=== PATIENT | female | born 1940 ===

== ENCOUNTER → 2016-04-14 | Outpatient (CLI) | payer OTHER, MEDICARE ==
[2016-04-14 16:43] LABS: LDL CHOLESTEROL,CALCULATED 153.2 mg/dL
[2016-04-14 16:58] LABS: CALCIUM 9.9 mg/dL (8.7-10.7); CREATININE 0.8 mg/dL (0.50-1.20); POTASSIUM 4.7 meq/L (3.8-5.2); TOTAL PROTEIN 6.7 g/dL (6.1-8.0)
== END ==
LOC: LAB 09:32
PROVIDERS: ATTEND Physician Assistant Medical
DX: E11.9 Type 2 diabetes mellitus without complications (principal); E78.2 Mixed hyperlipidemia; R53.83 Other fatigue
CPT/HCPCS: 80053; 80061; 82306; 83036; 84443

== ENCOUNTER → 2016-04-16 | Outpatient (CLI) | payer OTHER, MEDICARE | LOC: MMPC 11:11 | PROVIDERS: ATTEND Surgery | DX: R22.32 Localized swelling, mass and lump, left upper limb (principal) | CPT/HCPCS: 99243 ==

== ENCOUNTER → 2016-04-17 | Outpatient (CLI) | payer OTHER, MEDICARE ==
--- NOTE | 2016-04-19 19:30 | DI ---
MRI LEFT UPPER ARM SCAN WITHOUT AND WITH IV CONTRAST, 04/17/2016 12:53 PM: Clinical History: Mass of the left upper extremity. Previous Exam: None at this facility. Technique: Axial, sagittal, and coronal T1 and T2 weighted and T1-weighted fat saturated scans are colbert pplemented with axial, sagittal, and coronal postcontrast T1-weighted fat saturated scans. Due to elizabeth hnical difficulties, the precontrast T1-weighted fat saturated scans show poor fat saturation, but th e postcontrast scans are of excellent quality. There is an inhomogeneous fatty tumor located in the subcutaneous fat but superficial to Jose Eduardo's fas anabel along the anterolateral margin of the left deltoid muscle along the inferior margin of that muscl e. This lesion measures approximately 40 x 35 x 50 mm in PR-pgniflpgkn-nxidkpdytqrm measurements. In the superior half of the lesion, there is almost only fat tissue signal intensity present. In the inf erior half of, there are hypointense bands present in this portion of the tumor shows marked enhancem ent postcontrast. In addition, there are numerous venous channels in proximity of the lesion just fidelia p to the skin surface, and these probably represent draining veins emanating from the tumor. This les ion is highly suspicious for a liposarcoma. There is no abnormal bone signal pattern present with the exception of some cystic lesions in the head of the humerus. There is a large left shoulder joint ef fusion with a full-thickness partial tear of the supraspinatus tendon at the myotendinous junction. T here is an interstitial tear in the conjoined tendon that would not be visible at arthroscopy. The in fraspinatus, teres minor, and subscapularis tendons are normal. The glenoid labrum is intact. Readin. There is an inhomogeneous fatty lesion measuring 40 x 35 x 50 mm in the subcutaneous fat along th e anterolateral margin toward the inferior aspect of the deltoid muscle. This lesion is located deep to the skin surface and superficial to Jose Eduardo's fascia and shows marked enhancement along the inferio r aspect. The inferior portion of this lesion contains hypointense structures that show enhancement. There are cutaneous draining veins superficial to this lesion. 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 2. There is a full-thickness tear in the supraspinatus tendon at the myotendinous junction as well a s an interstitial tear in the conjoined tendon. A large joint effusion is present. 3. The infraspinatus, teres minor, and subscapularis tendons and the tendon of the long head of the biceps muscle are normal. The glenoid labrum is intact.
== END ==
LOC: MRI 13:42
PROVIDERS: ATTEND Surgery
DX: R22.32 Localized swelling, mass and lump, left upper limb (principal); M75.102 Unspecified rotator cuff tear or rupture of left shoulder, not specified as traumatic; M25.412 Effusion, left shoulder
CPT/HCPCS: 73220; A9579

== ENCOUNTER → 2016-10-14 | Outpatient (CLI) | payer OTHER, MEDICARE ==
--- NOTE | 2016-10-14 09:56 | EKG ---
[facility] [place] Measurements Intervals [place] Rate: 67 P: 47 NV: 133 QRS: 10 QRSD: 76 T: 31 QT: 400 QTc: 416 Interpretive Statements SINUS RHYTHM No previous ECG available for comparison Electronically Signed On 10-14-16 15:34:31 MDT by Nathan [email or web address] MD [email or web address]
[2016-10-14 14:43] LABS: BASOPHILS # (AUTO) 0.04 10*3/UL; BASOPHILS % (AUTO) 0.6 % (0-1); EOSINOPHILS # (AUTO) 0.12 10*3/UL; EOSINOPHILS % (AUTO) 1.8 % (0-8); HEMATOCRIT 44.8 % (37.0-47.0); HEMOGLOBIN 15.2 g/dL (12.0-16.0); LYMPHOCYTES # (AUTO) 1.96 10*3/uL; MEAN CORPUSCULAR HEMOGLOBIN 28.8 PG (27-31); MEAN CORPUSCULAR HGB CONC 33.9 g/dL (33-37); MEAN PLATELET VOLUME 10.6 FL (7.4-12.2); MONOCYTES # (AUTO) 0.58 10*3/UL (0.3-0.8); MONOCYTES % (AUTO) 8.8 % (5-15); NEUTROPHILS # (AUTO) 3.85 10*3/UL; NEUTROPHILS % (AUTO) 58.5 % (50-80); RED BLOOD COUNT 5.27 10^6/uL (4.20-5.40)
[2016-10-14 14:45] LABS: PLATELET MORPHOLOGY COMMENT NORMAL MORPHOLOGY (NORM); RBC MORPHOLOGY COMMENT NORMAL MORPHOLOGY (NORM); WBC MORPHOLOGY COMMENT NORMAL MORPHOLOGY (NORM)
[2016-10-14 14:46] LABS: BUN/CREATININE RATIO 13.75 (6-20); CALCIUM 9.6 mg/dL (8.7-10.7)
[2016-10-14 14:53] LABS: BILIRUBIN,URINE NEGATIVE (NEG); CLARITY,URINE CLEAR (CLEAR); COLOR,URINE YELLOW; GLUCOSE, URINE (UA) NEGATIVE (NEG); NITRATE,URINE NEGATIVE (NEG); OCCULT BLOOD,URINE NEGATIVE (NEG); PH,URINE 5.5 (5.0-8.5); PROTEIN,URINE NEGATIVE (NEG); UROBILINOGEN,URINE 0.2 mg/dL (0.2)
[2016-10-14 15:03] LABS: SQUAMOUS EPITHELIAL CELL,UR MODERATE; URINE SAMPLE TYPE VOIDED SPECIMEN
== END ==
LOC: EKG 09:54
PROVIDERS: ATTEND Physician Assistant Medical
DX: M17.12 Unilateral primary osteoarthritis, left knee (principal); E11.9 Type 2 diabetes mellitus without complications
CPT/HCPCS: 80053; 81001; 83036; 85025; 93005; 93010

== ENCOUNTER → 2016-10-16 | Outpatient (CLI) | payer OTHER, MEDICARE ==
[2016-10-16 15:14] LABS: BILIRUBIN,URINE NEGATIVE (NEG); CLARITY,URINE CLEAR (CLEAR); COLOR,URINE YELLOW; GLUCOSE, URINE (UA) NEGATIVE (NEG); NITRATE,URINE NEGATIVE (NEG); OCCULT BLOOD,URINE NEGATIVE (NEG); PH,URINE 5.5 (5.0-8.5); PROTEIN,URINE NEGATIVE (NEG); UROBILINOGEN,URINE 0.2 EU/dL (0.2)
[2016-10-16 16:15] LABS: URINE SAMPLE TYPE CLEAN CATCH URINE; WBC,URINE 0-3
== END ==
LOC: LAB 11:25
PROVIDERS: ATTEND Physician Assistant Medical
DX: M17.12 Unilateral primary osteoarthritis, left knee (principal)
CPT/HCPCS: 81001